=== PATIENT | male | born 1990 | race Caucasian/White ===

== ENCOUNTER 2025-01-26 16:43 | Emergency (ER) | payer OTHER ==
[~2025-01-26] VITALS: Ht 188 cm; Wt 72.6 kg
[~2025-01-26 16:43] MED LIST: AMOX500 PO; Ativan1 MG PO; CODACE30 PO; HYDACE5325; HYDMOR2 PO; NAPR500 PO; OXYACE5T PO; RXAMOX500 PO; RXCODACET PO
[2025-01-26 17:09] VITALS: BP 140/93
[2025-01-26] MEDS ORDERED: Ketorolac Tromethamine 30mg Vial IM ONE (17:15)
[2025-01-26] MEDS ORDERED: FAMO20 PO (17:17)
[2025-01-26] MEDS ORDERED: IBUP600 PO (17:17)
[2025-01-26] MEDS ORDERED: CYCL10 PO (17:17)
== END 2025-01-26 17:20 | disposition home or self-care (01) ==
LOC: ER 16:43
DX: S39.012A Strain of muscle, fascia and tendon of lower back, initial encounter (principal); F17.210 Nicotine dependence, cigarettes, uncomplicated; X50.3XXA Overexertion from repetitive movements, initial encounter
CPT/HCPCS: 99282-25; J1885